=== PATIENT | female | born 1955 | race Two or more races ===

== ENCOUNTER 2023-02-04 13:26 | Emergency (ER) | payer OTHER ==
[~2023-02-04] VITALS: Ht 162.6 cm; Wt 99.8 kg
[2023-02-04] MEDS ORDERED: HUMALOG100 UNIT/2 (13:35)
[2023-02-04] MEDS ORDERED: LANTUS SOL100 UNIT/1 (13:36)
== END 2023-02-04 19:48 | disposition home or self-care (01) ==
LOC: ER 13:26
DX: E16.2 Hypoglycemia, unspecified (principal)